=== PATIENT | male | born 1970 | race Caucasian/White ===

== ENCOUNTER 2020-05-09 13:27 | Emergency (ER) | payer BC, SELFPAY ==
[2020-05-09 13:52] VITALS: BP 125/63; PULSE 56; RESP 21; TEMP 36.7; O2SAT 98; BMI 39.4
--- NOTE | 2020-05-09 14:29 | HMH.EDUTC ---
[facility] Disposition Clinical Impression: Corneal abrasion, right Qualifiers: Encounter type: initial encounter Qualified Code(s): S05.01XA - Injury of conjunctiva and corneal abrasion without foreign body, right eye, initial encounter Disposition: Home, Self-Care Condition on Discharge: Good Instructions: DI for Corneal Abrasion Additional Instructions: Follow up with the eye doctor as scheduled. Stop using the erythromycin eye ointment and start using the ofloxacin eye drops that I prescribed. Follow up with your primary care provider. IF YOU HAVE ANY WORSENING EYE PAIN OR CHANGES IN YOUR VISION, PLEASE GO TO THE ER. Prescriptions: Ofloxacin [Ocuflox 0.3% OPHTH drops 5mL] 1 drp EYE-RIGHT Q4H 7 Days #1 bottle Transmission Status: Received by [facility] Referrals: Provider,Referral, [Primary Care Provider] - Forms: Work/School Release Time of Disposition: 14:41 Medical Decision Making - Medical Records Medical records reviewed: No: I reviewed the patient's medical records. - Rd Inquiry Pt receiving controlled substance: No Vital Signs: 05/09/20 13:52 05/09/20 15:02 Temperature 98.0 F 98.0 F Temperature Source Oral Oral Pulse Rate 56 L Pulse Rate [Radial] 56 L Respiratory Rate 21 21 Blood Pressure 125/63 Blood Pressure [Right Arm] 125/63 Blood Pressure Mean [Right Arm] 83 Blood Pressure Source Automatic Cuff Blood Pressure Position Sitting 02 Sat by Pulse Oximetry 98 Oxygen Delivery Method Room Air Room Air [facility] HPI - General Stated complaint: rt eye pain Time Seen by Provider: 05/09/20 13:55 Mode of Arrival: Ambulatory Source of Information: Patient Limitations: No Limitations Description of Symptoms (Recalled from Triage Doc. by RN): states that he had a mri under sedation yesterday and when he woke up he had right eye irritation. was [facility] and told he had a corneal abrasion. Was given ointment but states that it just makes it worse. HEENT Symptoms (Recalled from RN notes): Yes Resp Symptoms (Recalled from RN notes): No Skin Symptoms (Recalled from RN notes): No MS Symptoms (Recalled from RN notes): No Functional Status (Recalled from RN notes): wnl - History of Present Illness Provider Complaint: He states that he has a corneal abrasion on his right eye. He had an cervical MRI done at yesterday. He was sedated during the procedure. After he woke up he began having right eye discomfort and light sensitivity. He went to the [facility] at and was diagnosed with a corneal abrasion. He states that he was prescribed ees eye ointment. Today, since he put the eye ointment in his eye, his eye has began to feel worse. He denies any change in his vision. He has an appointment with ophalamology on Tuesday (3 days from now). - Related Data Previous Rx's Medication Instructions Recorded Ofloxacin [Ocuflox 0.3% OPHTH 1 drp EYE-RIGHT Q4H 7 Days #1 05/09/20 drops 5mL] bottle Allergies Allergy/AdvReac Type Severity Reaction Status Date / Time No Known Allergies Allergy Verified 05/09/20 13:56 - Worker's Comp Is this a Worker's Comp case?: No [facility] History - Hepatitis A Screen Drug use history?: No High risk sexual behaviors?: No History of sexually transmitted infection?: No Currently employed?: No Childcare worker?: No Do you have indoor plumbing?: Yes Do you have electricity?: Yes Attestation statement:: This patient has been screened for Hepatitis A risk factors. I have reviewed the patient's past medical history: Yes - Social History Alcohol Intake: never Occupational Status: employed ROS Obtained: Yes All systems reviewed & no additional complaints - Constitutional Constitutional: Denies chills, Denies fever(s) - Eyes Eyes: Reports as per HPI - ENT Ears, Nose, Mouth, and Throat: Denies dizziness, Denies otalgia, Denies sore throat Physical Exam - General General appearance: alert, in no apparent distr
[2020-05-09 15:02] VITALS: BP 125/63; PULSE 56; RESP 21; TEMP 36.7; O2SAT 98
== END 2020-05-09 15:03 | disposition home or self-care (01) ==
PROVIDERS: Emergency Provider Nurse Practitioner Family
DX: S05.01XA Injury of conjunctiva and corneal abrasion without foreign body, right eye, initial encounter (principal)
CPT/HCPCS: 99201

== ENCOUNTER 2020-06-17 17:49 | Emergency (ER) | payer BC, SELFPAY ==
[2020-06-17 18:07] VITALS: BP 134/71; PULSE 68; RESP 19; TEMP 36.9; O2SAT 96; BMI 37.3
[2020-06-17 18:14] VITALS: BP 134/71; PULSE 68; RESP 19; TEMP 36.9; O2SAT 96
--- NOTE | 2020-06-17 18:14 | HMH.EDUTC ---
[facility] [place] Impression: Encounter for laboratory testing for COVID-19 virus Disposition: Home, Self-Care Condition on Discharge: Good Instructions: Preventing the Spread of Coronavirus Discharge Instructions Additional Instructions: *Monitor Temp, Over the counter Motrin or Tylenol as directed/as needed Tylenol every 4 hours and Motrin every 6 hours (as long as your family doctor has told you that you can take it) for fever or pain. and straight to ER if unable to lower temp less than 101.0 after medication given *Warm salt water gargles may help to soothe the throat *Throat Lozenges *Warm fluids like tea with honey may help to soothe the throat *Sleep elevated *Humidifier/Vaporizer Follow up IMMEDIATELY for new or worsening symptoms or no Noticeable improvement over the next 48-72 hours. 911 for difficulty breathing or swallowing You was tested for today for COVID19 your test result should be back in the next 24-48 hours, you may call to the [facility] tomorrow to see if your test results are back and the result [phone] You was given a handout with instructions for Self Quarantine and Self isolation for while you wait on test results and what to do if they are positive If you are positive the Health Dept will be contacting you also Referrals: PCP,No [Primary Care Provider] - Forms: Work/School Release Time of Disposition: 18:20 Medical Decision Making - Rd Inquiry Pt receiving controlled substance: No Rd was queried for this patient: No Vital Signs: 06/17/20 18:07 Temperature 98.4 F Temperature Source Oral Pulse Rate [Left] 68 Respiratory Rate 19 Blood Pressure [Right Arm] 134/71 Blood Pressure Mean [Right Arm] 92 Blood Pressure Source [Right Arm] Automatic Cuff Blood Pressure Position [Right Arm] Sitting 02 Sat by Pulse Oximetry 96 Oxygen Delivery Method Room Air Orders (Tests/Meds): ORDERS Category Date Time Status Covid-19 Nasal PCR Sendout [facility] 06/17/20 17:58 [place] [facility] [place] - General Stated complaint: Positive COVID test yesterday Time Seen by Provider: 06/17/20 18:14 Mode of Arrival: Ambulatory Source of Information: Patient Limitations: No Limitations Description of Symptoms (Recalled from Triage Doc. by RN): Retest for Covid. Pt tested positive yesterday and having a colonoscopy tomorrow and felt like the test was wrong since he doesn't have any symptoms. HEENT Symptoms (Recalled from RN notes): No Resp Symptoms (Recalled from RN notes): No Skin Symptoms (Recalled from RN notes): No MS Symptoms (Recalled from RN notes): No Functional Status (Recalled from RN notes): stable - History of Present Illness Provider Complaint: Patient state that he has been tested for COVID a couple of times first was negative and yesterday they told him that he tested positive States that he is suppose to have Colonoscopy tomorrow and doesnt think the test was right State that he isnt having any symptoms and wanted to get retested Concerned that he may have a false positive - Related Data Previous Rx's Medication Instructions Recorded Ofloxacin [Ocuflox 0.3% OPHTH 1 drp EYE-RIGHT Q4H 7 Days #1 05/09/20 drops 5mL] bottle Allergies Allergy/AdvReac Type Severity Reaction Status Date / Time No Known Allergies Allergy Verified 06/17/20 18:12 - Worker's Comp Is this a Worker's Comp case?: No Is this an [facility] Worker's Comp?: No Is this a [facility] Worker's Comp?: No H History - Hepatitis A Screen Drug use history?: No High risk sexual behaviors?: No History of sexually transmitted infection?: No Currently employed?: No Childcare worker?: No Do you have indoor plumbing?: Yes Do you have electricity?: Yes Attestation statement:: This patient has been screened for Hepatitis A risk factors. I have reviewed the patient's past medical history: Yes Medical History: Denies:: Cancer, Diabetes Mellitus Type 1, Diabetes Mellitus Type 2, MRSA Amputat
[2020-06-19 17:04] LABS: Covid-19 Nasal PCR Sendout Lex Positive
--- NOTE | 2020-06-19 18:56 | PC.NURSE ---
PATIENT NOTIFIED OF POSITIVE COVID RESULTS
== END 2020-06-17 18:36 | disposition home or self-care (01) ==
PROVIDERS: Emergency Provider Nurse Practitioner
DX: U07.1 COVID-19 (principal)
CPT/HCPCS: 99201; U0004

== ENCOUNTER → 2021-10-23 16:37 | Outpatient (CLI) | payer BC, SELFPAY | PROVIDERS: Visit Provider Internal Medicine Gastroenterology | DX: Z01.812 Encounter for preprocedural laboratory examination (principal); Z11.52 Encounter for screening for COVID-19 | CPT/HCPCS: C9803; U0003; U0005 ==

== ENCOUNTER 2022-02-06 12:37 | Emergency (ER) | payer BC, SELFPAY ==
[2022-02-06 12:49] VITALS: BP 136/79; PULSE 59; RESP 16; TEMP 36.9; O2SAT 96; BMI 26.4
--- NOTE | 2022-02-06 13:07 | HMH.EDUTC ---
[facility] [place] Clinical Impression: Hematoma of arm Qualifiers: Encounter type: initial encounter Laterality: right Qualified Code(s): S40.021A - Contusion of right upper arm, initial encounter Disposition: Home, Self-Care Condition on Discharge: Good Instructions: DI for Hematoma (Bruise) Additional Instructions: Apply ice packs wrapped in a cloth, to the affected site for approximately 20 minutes 3 times per day for the next 24 hours. After that time period, You may apply warm, moist compresses to the site for 20 minutes one or more time during the second 24 hours after the collection. Watch the site for worsening redness, etc. Follow up with your doctor for any issues. If you notice any of the following complications go to the er. 1. Discoloration of the hand 2. Additional swelling 3.Generalized pain or discomfort of the arm 4. Throbbing of the arm 5. Numbness in the arm Take tylenol for pain or discomfort. Referrals: Annabelle Olvera MD [Primary Care Provider] - Forms: Work/School Release Time of Disposition: 13:43 Medical Decision Making - Medical Records Medical records reviewed: No: I reviewed the patient's medical records. - Rd Inquiry Pt receiving controlled substance: No Vital Signs: 02/06/22 12:49 02/06/22 13:53 Temperature 98.4 F 98.4 F Temperature Source Oral Pulse Rate 59 L Pulse Rate [Left] 59 L Respiratory Rate 16 16 Blood Pressure 136/79 Blood Pressure [Right Arm] 136/79 Blood Pressure Mean [Right Arm] 98 02 Sat by Pulse Oximetry 96 [facility] [place]PI - General Stated complaint: possible hematoma Time Seen by Provider: 02/06/22 13:07 Description of Symptoms (Recalled from Triage Doc. by RN): patient comes in today with a hematoma from giving plasma yesterday HEENT Symptoms (Recalled from RN notes): No Resp Symptoms (Recalled from RN notes): No Skin Symptoms (Recalled from RN notes): Yes MS Symptoms (Recalled from RN notes): No Functional Status (Recalled from RN notes): wnl - History of Present Illness Provider Complaint: He states that he donated platelets earlier today and the reinfusion needle came out of his vein for a few seconds. He has swelling above the needle insertion site. - Related Data Previous Rx's Medication Instructions Recorded Ofloxacin [Ocuflox 0.3% OPHTH 1 drp EYE-RIGHT Q4H 7 Days #1 05/09/20 drops 5mL] bottle Allergies Allergy/AdvReac Type Severity Reaction Status Date / Time No Known Allergies Allergy Verified 06/17/20 18:12 - Worker's Comp Is this a Worker's Comp case?: No [facility] History - Hepatitis A Screen Attestation statement:: This patient has been screened for Hepatitis A risk factors. I have reviewed the patient's past medical history: Yes Medical History: Denies:: Cancer, Diabetes Mellitus Type 1, Diabetes Mellitus Type 2, MRSA Amputation: No Fractures: No - Social History Smoking Status: Never smoker Alcohol Intake: never Occupational Status: employed ROS Obtained: No All systems reviewed & no additional complaints - Constitutional Constitutional: Denies chills, Denies fever(s) - Musculoskeletal Musculoskeletal: Denies back pain - Integumentary/Breasts Skin/Breast: Reports as per HPI - Neurologic Neurologic: Denies tingling/numbness/burning sensations Physical Exam - General General appearance: alert, in no apparent distress - Head Head exam: atraumatic, normocephalic, normal inspection - Eye Eye exam: Present: normal appearance, PERRL, EOMI - ENT ENT exam: Present: normal exam, normal oropharynx, mucous membranes moist, TM's normal bilaterally, normal external ear exam - Neck Neck exam: Present: normal inspection, full ROM, trachea midline. Absent: meningismus, lymphadenopathy - Chest Chest inspection: Present: normal inspection, symmetric chest wall rise. Absent: tenderness - Respiratory Respiratory exam: Present: normal lung sounds bilaterally. Absent: respiratory d
[2022-02-06 13:53] VITALS: BP 136/79; PULSE 59; RESP 16; TEMP 36.9
== END 2022-02-06 13:54 | disposition home or self-care (01) ==
PROVIDERS: Emergency Provider Nurse Practitioner Family; PCP Pediatrics
DX: S40.021A Contusion of right upper arm, initial encounter (principal); Z52.098 Other blood donor, other blood
CPT/HCPCS: 99212; G0463